=== PATIENT | male | born 1975 | race Caucasian/White ===

== ENCOUNTER 2017-08-25 19:47 | Emergency (ER) | payer BC ==
[2017-08-25] MEDS ORDERED: Ibuprofen 800 MG TAB ONE (20:28)
[2017-08-25] MEDS ORDERED: Acetaminophen 500 MG TAB ONE (22:30)
[2017-08-25 22:41] LABS: Hematocrit 46.2 % (42.0-52.0); Red Blood Cell (RBC) Count 4.78 mill/uL (4.70-6.10); White Blood Cell (WBC) Count 5.8 thou/uL (4.8-10.8)
[2017-08-25] MEDS ORDERED: cefTRIAXone\\ROCEPHIN 2 GM in Sodium Chloride 0.9% 100 ML IVPB SCH (22:45)
[2017-08-25 22:59] LABS: ALT (SGPT) 150 U/L (8-55); AST (SGOT) 150 U/L (5-34); Alkaline Phosphatase 106 U/L (40-150); Anion Gap 16 mmol/L (10-20); BUN (Urea Nitrogen) 10 mg/dL (8.9-20.6); Bilirubin, Total 0.5 mg/dL (0.2-1.2); Calc. Creatinine Clearance 0 mL/min (70-130); Calcium 9.1 mg/dL (7.8-10.44); Carbon Dioxide 19 mmol/L (22-29); Chloride 107 mmol/L (98-107); Estimated GFR-MDRD 75; Globulin 3.2 g/dL (2.4-3.5); Protein, Total 7.2 g/dL (6.0-8.3)
[2017-08-25 23:00] LABS: #Lymphocytes 0.3 thou/uL (1.20-3.40); #Monocytes 0.3 thou/uL (0.11-0.59); #Neutrophils 5.1 thou/uL (1.40-6.50); %Basophils 0.6 % (0.0-1.0); %Eosinophils 0.3 % (0.0-10.0); %Lymphocytes 5.6 % (21.0-51.0); %Monocytes 4.8 % (0.0-10.0); Mean Platelet Volume 9.4 fL (7.4-10.4)
[2017-08-25 23:04] LABS: Troponin I 0.025 ng/mL (< 0.028)
--- NOTE | 2017-08-25 23:06 | RAD ---
CHEST PA AND LATERAL: 08/25/17 HISTORY: 41-year-old male with history of fever, cough, bodyaches since yesterday. Left ICD. Minimal linear parenchymal changes horizontally in the lung bases have a more of a chronic appearance. No confluent pneumonia, overt edema or pleural effusion. IMPRESSION: Horizontal linear parenchymal changes in the lung bases having more of a chronic appearance. Left ICD . No evidence for a confluent pneumonia or other acute process. POS: [facility]
[2017-08-25 23:11] LABS: Anion Gap 13 mmol/L (-14-95); Lactate 1.63 mmol/L (0.50-2.20); POC Est. GFR-MDRD-African-Amer Greater than 60; POC Estimated GFR-MDRD Greater than 60; T. Carbon Dioxide 20.1 mmol/L (1.0-85.0); pH (Venous) 7.467 (7.35-7.45); vO2 Saturation-calc 98.8 % (0.0-100.0)
[2017-08-25] MEDS ORDERED: Azithromycin 500 MG in Sodium Chloride 0.9% 250 ML 250 ML IVPB SCH (23:45)
== END 2017-08-26 00:52 | disposition home or self-care (01) ==
LOC: ERS 19:47
DX: J11.1 Influenza due to unidentified influenza virus with other respiratory manifestations (principal); I25.2 Old myocardial infarction; I10 Essential (primary) hypertension; F17.210 Nicotine dependence, cigarettes, uncomplicated; Z79.899 Other long term (current) drug therapy; Z79.82 Long term (current) use of aspirin
CPT/HCPCS: 36415; 71020; 80053; 82330; 82553; 82803; 83605; 84484; 85025; 87040; 93005; 94640; 96365; 99406; J0456; J0696; J7050; J7620

== ENCOUNTER 2017-12-09 01:23 | Observation (INO) | payer BC ==
[2017-12-09 01:58] LABS: #Eosinphils 0.2 thou/uL (0.0-0.7); #Lymphocytes 1.4 thou/uL (1.20-3.40); #Monocytes 0.6 thou/uL (0.11-0.59); #Neutrophils 8.5 thou/uL (1.40-6.50); %Eosinophils 1.4 % (0.0-10.0); %Monocytes 5.3 % (0.0-10.0); %Neutrophils 80.3 % (42.0-75.0); Hemoglobin 13.8 g/dL (14.0-18.0); Mean Corpuscular HGB CONC 33.7 g/dL (32.0-36.0); Mean Corpuscular Hemoglobin 29.6 pg (27.0-31.0); Mean Corpuscular Volume 87.8 fl (80.0-94.0); Mean Platelet Volume 8.4 fL (7.4-10.4); Platelet Count 143 thou/uL (130-400); RBC Distribution Width 14.7 % (11.5-14.5); Red Blood Cell (RBC) Count 4.66 mill/uL (4.70-6.10); White Blood Cell (WBC) Count 10.6 thou/uL (4.8-10.8)
[2017-12-09] MEDS ORDERED: Morphine 4 MG/ML VIAL ONE (02:03)
[2017-12-09 02:04] LABS: INR-International Normal Ratio 1.3; PTT 32.7 SEC (22.9-36.1); Prothrombin Time 16.2 SEC (12.0-14.7)
[2017-12-09 02:20] LABS: ALT (SGPT) 40 U/L (8-55); AST (SGOT) 23 U/L (5-34); Albumin 3.9 g/dL (3.5-5.0); Alkaline Phosphatase 94 U/L (40-150); Anion Gap 13 mmol/L (10-20); BUN (Urea Nitrogen) 11 mg/dL (8.9-20.6); Bilirubin, Total 1.8 mg/dL (0.2-1.2); Calc. Creatinine Clearance 0 mL/min (70-130); Calcium 9.6 mg/dL (7.8-10.44); Carbon Dioxide 21 mmol/L (22-29); Chloride 107 mmol/L (98-107); Estimated GFR-MDRD 81; Globulin 3.1 g/dL (2.4-3.5); Glucose 173 mg/dL (70-105); Magnesium 1.8 mg/dL (1.6-2.6); Potassium 4.4 mmol/L (3.5-5.1); Sodium 137 mmol/L (136-145)
[2017-12-09 02:23] LABS: CKMB 0.8 ng/mL (0-6.6); Troponin I 0.012 ng/mL (< 0.028)
[2017-12-09] MEDS ORDERED: Acetaminophen 325 MG TAB PO PRN (04:27)
[2017-12-09] MEDS ORDERED: Ondansetron HCl/PF 4 MG/2 ML Vial IVP PRN (04:27)
[2017-12-09] MEDS ORDERED: Ondansetron ODT 4 MG TAB SL PRN (04:27)
[2017-12-09 05:00] VITALS: BMI 30.5
[2017-12-09 05:55] LABS: Troponin I Less than 0.010 ng/mL (< 0.028)
[2017-12-09 08:11] LABS: Troponin I 0.015 ng/mL (< 0.028)
--- NOTE | 2017-12-09 08:39 | RAD ---
CHEST 1 VIEW: Date: 12/09/17 HISTORY: Chest pain. COMPARISON: 08/25/17. FINDINGS: Cardiac silhouette is magnified and upper limits of normal in size. Pulmonary vasculature is slightly engorged. Patchy areas of parenchymal infiltrate are most pronounced in the right upper lobe, left l ower lobe superior segment, and the left lateral lung base. There is blunting of the left lateral cos tophrenic angle. No evidence of pneumothorax. Single lead left subclavian cardiac defibrillator is in place. IMPRESSION: Bilateral patchy infiltrates and left pleural fluid. Possibly related to pulmonary vascular congestio n. Clinical correlation regarding other signs and symptoms of multifocal pneumonitis is required. Con tinued radiographic follow-up is suggested. POS: [facility]
[2017-12-09] MEDS ORDERED: traMADol HCl 50 MG TAB PO PRN (08:53)
[2017-12-09] MEDS ORDERED: Bisacodyl 5 MG TAB PO PRN (08:54)
[2017-12-09] MEDS ORDERED: Apixaban 5 MG TAB PO SCH (09:00)
[2017-12-09] MEDS ORDERED: Amiodarone 200 MG TAB PO SCH (09:00)
[2017-12-09] MEDS ORDERED: Aspirin 81 mg Enteric Coated Tablet PO SCH (09:00)
[2017-12-09] MEDS ORDERED: Carvedilol 3.125 MG TAB PO SCH (09:00)
[2017-12-09] MEDS: Penicillin V Potassium 250 MG TAB PO SCH ×2 (09:52→14:31)
[2017-12-09 12:23] VITALS: BP 133/81; TEMP 98.2
--- NOTE | 2017-12-09 18:19 | SS ---
DATE OF SERVICE: 12/09/2017 PRIMARY CARE PROVIDER: [facility]. CHIEF COMPLAINT: Vomiting, AICD shock. HISTORY OF PRESENT ILLNESS: Mr. Daniel is a pleasant 42-year-old gentleman who was seen at [facility] on 12/09/2017. He has a history of coronary artery disease. He also has an AICD, which was placed in 2012. He was hospitalized at [facility] from 08/[facility]/2017 to 10/18/2017 for swine flu, sepsis and double pneumonia. He reports losing 40 pounds of weight during that hospitalization. More recently, he started having pain over one of his lower teeth on the left side. He usually follo ws a dentist, but the dentist was not available. He therefore [facility] and was sta rted on oral penicillin for tooth abscess. He took the first dose 2 days ago at 4:00 p.m. Yesterday , he started having lightheadedness in the morning. It was on and off. He also reports chills, but denies any fevers. He reports having nausea and vomiting. He had the symptoms yesterday. Shortly a fter midnight, EMS was called. When they went to assess him, his AICD fired. He was therefore broug ht to the emergency room. REVIEW OF SYSTEMS: The following complete review of systems was negative, unless otherwise mentioned in the HPI or below: Constitutional: Weight loss or gain, ability to conduct usual activities. Sk in: Rash, itching. Eyes: Double vision, pain. ENT/Mouth: Nose bleeding, neck stiffness, pain, te nderness. Cardiovascular: Palpitations, dyspnea on exertion, orthopnea. Respiratory: Shortness of breath, wheezing, cough, hemoptysis, fever or night sweats. Gastrointestinal: Poor appetite, abdom inal pain, heartburn, nausea, vomiting, constipation, or diarrhea. Genitourinary: Urgency, frequenc y, dysuria, nocturia. Musculoskeletal: Pain, swelling. Neurologic/Psychiatric: Anxiety, depressio n. Allergy/Immunologic: Skin rash, bleeding tendency. PAST MEDICAL HISTORY: Significant for coronary artery disease, myocardial infarction, status post PC I with stents, AICD, followed by Dr. Gonsales in [place] for Cardiology and recent hospitalization as robby cutler above. PAST SURGICAL HISTORY: Significant for right hand surgery, right foot surgery, PCI with stent and AI CD placement. SOCIAL HISTORY: He smokes cigars occasionally. He reports occasional alcohol use. He denies any re creational drug use. FAMILY HISTORY: Significant for cerebrovascular accident and myocardial infarction in his mother. ALLERGIES: DEMEROL. CURRENT MEDICATIONS: Aspirin 81 mg daily, Pacerone 100 mg 2 times a day, pravastatin 20 mg daily, El iquis 5 mg 2 times a day, and carvedilol 6.25 mg 2 times a day. PHYSICAL EXAMINATION: GENERAL: Mr. Daniel was awake and alert, not in acute distress. He was afebrile. Blood pressure was 121/78, pulse was 78. He was breathing at rate of 18, and saturating 97% on 2 liters. EYES: No scleral icterus. No conjunctival pallor. ENT: Moist mucosal membranes, no oropharyngeal erythema or exudates. NECK: Supple, nontender, normal range of movement. Trachea is midline. RESPIRATORY: Accessory muscles of breathing are not active. Chest wall movements are symmetric. LUNGS: Clear to auscultation, without wheeze, rhonchi or crepitations. CARDIOVASCULAR: S1 and S2 are heard: Regular. Peripheral pulses palpable. No carotid bruit, no pe ricardial rub. ABDOMEN: Soft, nontender, bowel sounds are heard, no hepatomegaly. No splenomegaly. NEUROLOGIC: Cranial nerves II-XII intact. Deep tendon reflexes are 2+. SKIN: No rashes or subcutaneous nodules. MUSCULOSKELETAL: Power is 5/5 in all 4 extremities. Normal range of movement at all major extremity joints. LYMPHATIC: No cervical lymphadenopathy. PSYCHIATRIC: Normal mood, normal affect, patient is oriented to person, place, and time. LABORATORY DATA: Mr. Daniel's labs and investigations were reviewed. I reviewed his electrocardi ogram, which shows normal sinus rhythm with nonspecific intraventricular block. I also reviewed his chest x-ray, which shows pulmonary vascular congestion. He has a normal white count, normocytic anem ia with hemoglobin 13.8, normal platelet count. INR 1.3, elevated total bilirubin of 1.8, elevated B RETIREMENT CONSULTANT of 755, elevated TSH of 5.9956, troponin I that is negative x2, normal AST, normal ALT and normal alkaline phosphatase. ASSESSMENT AND PLAN: Mr. Daniel is a pleasant 42-year-old gentleman who was seen at [facility] on 12/09/2017. His problem list included, 1. Nausea: He reports that nausea had improved, last episode of vomiting was around midnight. He r eports feeling better. 2. AICD firing: Cardiology Service has been consulted by the emergency room physician. I will have his AICD interrogated. Further management depending on Cardiology Service recommendations. 3. Congestive heart failure, suspected. Clinically, there is no jugular venous distention, pulmonar y crackles or lower extremity edema. We will trial furosemide if he feels short of breath. At this point in time, patient denies having any shortness of breath. 4. Tobacco abuse: Patient has been counseled regarding tobacco cessation. HOSPITAL COURSE: Mr. Daniel was admitted to the hospital on observation status. He did not have any arrhythmias on telemetry. On the afternoon of 12/09/2017, he wanted to follow up with his primar y denture laboratory technician. He left the hospital against medical advice on 12/09/2017. Many thanks for allowing me to participate in your patient's care. Please feel free to contact me wi th any questions or concerns.
--- NOTE | 2017-12-09 20:57 | CON ---
This is Lindsay Mccullough, Nurse Practitioner, dictating for Dr. Bai, who is a steamship agent. CARDIOLOGY CONSULTATION REPORT DATE OF CONSULTATION: 12/09/2017 LOCATION: Room #248. PRIMARY CARE PHYSICIAN: Cheryl Zarate M.D. PRIMARY PANTRY STEWARD/STEWARDESS: Dr. Gonsales in [place], [place], but here, the patient's primary steamship agent in [facility] is going to be Dr. Belinda Bai. REFERRING PHYSICIAN: Evan Mckee DO REASON FOR CARDIOLOGY CONSULT: Chest pain. HISTORY OF PRESENT ILLNESS: Mr. Daniel is a 42-year-old male with a significant history of ischemic cardiomyopathy with status post implantable defibrillator placement in 2012 and history of AFib with ablation and then 50 days of hospitalization, current hospitalization for pneumonia and H1N1. Last Sunday, 12/07, the patient started having tooth pain and the patient was prescribed pain medicine and antibiotics. He started taking the medicine at night on 12/07 and the next day on , he started feeling dizziness and he did not feel quite good whole day on Sunday. On Sun morning, he vomited twice and he feels sweat and he had severe shortness of breath. When EMS arr ived, his defibrillator discharged one time without any alarms and the patient was transferred to the [facility] for further evaluation and treatment. At the initial Cardiology ass essment, the patient denies shortness of breath, chest pain or discomfort, numbness in the left upper arm, extremities, dizziness, lightheadedness, or any other complaints. He has generalized weakness due to 50 days of current hospitalization in 10/2017 for pneumonia and H1N1. He did exercise with [facility] physical therapist without any cardiac complaints. The patient's last echocardiogram was done in 05/[address] De Dios's office, which shows EF of 15% to 20%, mild dilated left atrium, moderate mitral valve regurgitation, mild tricuspid regurgitation, moderate pulmonary regurgitation, dyskinetic apex and moderate dilated left ventricle. The patient has coronary artery disease with history of stent placement x1 in the LAD in 05/2012. A single chamb er [employer] implantable defibrillator was placed in 07/2013 and revision was done in 08/2013 due to m icro lead perforation, and per the patient, the patient's AICD interrogation was done in 10/2017 by Maxine Gonsales in the [place], [place]. Dr. Gonsales changed the patient's heart rate setting from 40 to 60 due to forced discharge from his AICD. The patient's AICD was interrogated and the record shows that the patient got shocked x1 for atrial f ibrillation with RVR with heart rates up to more than 200 last night prior to this admission. The cheko martinez has a history of atrial fibrillation with ablation before. The patient has seen Dr. Fu in the past and now the patient's cardiac management was transferred to Dr. Gonsales in the [facility] as. [facility] pacemaker, nurse reported that they are going to transfer the patient's home monitor fr om Dr. Fu's office to Dr. Gonsales's office for closer defibrillator management. PAST MEDICAL HISTORY: 1. Ischemic cardiomyopathy with EF of 15% in 2013, history of atrial fibrillation with status post A Fib ablation at the [facility] in the [place], [place], but he cannot remember the time and date. 2. Hyperlipidemia. 3. Coronary artery disease, status post stents placement in 2011. 4. Hyperlipidemia. 5. Tobacco abuse. PAST SURGICAL HISTORY: 1. Status post [employer] single chamber implantable defibrillator placement in 2012 with a micro lead revision. 2. Right hand surgery. 3. Atrial fibrillation ablation. 4. A foreign object was removed from his lungs. FAMILY HISTORY: The patient's mother has a medical history of myocardial infarction and CVA at the a ge of 30-60. She also has a history of hyperlipidemia. The maternal grandmother on the maternal yessy e has a history of myocardial infarction and Alzheimer's disease. The patient's paternal side has hi story of diabetes and EtOH abuse. SOCIAL HISTORY: He is and he has 3 children who lives well. 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 He has alcohol once a month about 3 times a month. He denied any illicit drug abuse . ALLERGIES: He is allergic to DEMEROL and PREDNISONE. HOME MEDICATIONS: Aspirin 81 mg once a day, carvedilol 6.25 twice a day, Eliquis 5 mg p.o. twice a d ay, amiodarone 100 mg twice a day, tramadol 50 mg every 6 hours as needed, Penicillin V potassium 500 mg three times a day. REVIEW OF SYSTEMS: The following complete review of systems was negative, unless otherwise mentioned in the HPI or below. Constitutional: Weight loss or gain, sense of well-being, ability to conduct usual activities, exercise tolerance. Skin: Rash, itching, breast lumps, tenderness, swelling or ni pple discharge. Eyes: Vision change, double vision, tearing, blind spots, pain. HEENT: Headache, vertigo, lightheadedness, nose bleeding, colds, obstruction, discharge, dental difficulty, gingival b leeding, denture, neck stiffness, pain, tenderness, mass in the thyroid or the other areas. Cardiova scular: Pericardial pain, substernal distress, palpitations, syncope, dyspnea on exertion, orthopnea , nocturnal dyspnea, edema, cyanosis, heart murmur and claudication. Respiratory: Pain, shortness o f breath prior to this episode, wheezing, stridor, cough, hemoptysis. Gastrointestinal: Poor appeti te, dysphagia, indigestion, abdominal pain, heartburn, eructation, nausea, vomiting, jaundice, consti pation, or diarrhea, abnormal or blood in stool. Genitourinary: Urgency, frequency, dysuria, noctur ia, hematuria, polyuria, oliguria, unusual color of urine. Musculoskeletal: Pain, swelling, redness or heat of muscle or joint, limitation of motion, positive for muscle weakness due to long period ti me of the hospitalization. Neurologic: Seizure, conversion, paralysis, tremor, incoordination. Psy chiatric: Emotional problem, anxiety, depression, previous psychiatric care, unusual perception, max lucination. PHYSICAL EXAMINATION: VITAL SIGNS: Blood pressure 121/78, pulse is 78 with sinus rhythm, temperature 98.3, respiratory rat e 18. The patient is on 2 liters nasal cannula. GENERAL: A well-developed, well-nourished without any acute distress. HEAD: Normocephalic and atraumatic. EYES: Extraocular muscle movement intact. ENT: Oral and nasal mucosa moist without lesion. NECK: No JVD. Neck is supple with normal range of motion. LUNGS: Clear to auscultation bilaterally. No wheezing, rales or rhonchi noted. CARDIOVASCULAR: Regular rate and rhythm. Normal S1 and S2. There are no S3 or S4. No significant murmur, hives, thrill or bruits noted. There are 2+ pulses in the dorsal pedis, posterior tibial, an d popliteal. Carotid pulse present without bruits or thrill. No edema in the bilateral lower extrem ities. ABDOMEN: Soft and nontender or mass to palpate, nondistended. Bowel sounds are present. MUSCULOSKELETAL: The patient able to move all extremities. The patient denied any calf tenderness. SKIN: Warm and dry. No skin rash, lesion or bruise noted. NEUROLOGIC: Alert, oriented x4, awake, normal affect, nonfocal. PSYCHIATRIC: Mood and affect are normal. LABORATORY AND IMAGING DATA: EKG: A 12-lead EKG in the ER shows sinus tachycardia and V-paced, hear t rate of 104, T-wave inversion in lead I, lead II, AVF and V6. The patient's chest x-ray shows bila teral patchy infiltrate and left pleural fluid. WBC 10.6, hemoglobin 13.8, hematocrit 40.9 and platelet 143. Sodium 137, potassium 4.4, BUN 11, crea tinine 1.0, glucose 173, magnesium 1.8, AST 23, ALT 40, CK-MB 0.8. Troponin 0.012, less than 0.010 a nd next one 0.015. BNP is 1755 and TSH is 5.9956. ASSESSMENT AND PLAN: Status post automatic implantable cardioverter-defibrillator discharge. Again, the patient's automatic implantable cardioverter-defibrillator interrogation today shows: 1. The patient received one shock discharge last night for atrial fibrillation with rapid ventricula r response with heart rate more than 200. We would like to continue to monitor the patient on the te lemetry at this moment. Then, also the patient's home monitor record is going to be transferred to Maxine evans Attar's office in the [place] for more closer defibrillator management and to monitor. 2. History of atrial fibrillation. Again, the patient's automatic implantable cardioverter-defibril lator interrogation records revealed that the patient had atrial fibrillation with rapid ventricular response with heart rate more than 200. At this moment, on the telemetry record, the patient's heart rates have been in the 80s with ventricular paced. The patient is on Eliquis 5 mg twice a day with amiodarone 100 twice a day. We would like to continue to monitor on telemetry and we might like to a djust the patient's medication as appropriate. 3. Hyperlipidemia. He is on simvastatin 10 mg once a day, we would like to continue. 4. Hypothyroidism. The patient's TSH on 12/09 shows 5.9956. The patient might need some thyroid me dication to correct this level. 5. Tooth infection, tooth pain. The patient on the Penicillin V potassium 500 mg 3 times a day with tramadol as needed for pain control. The patient's condition is stable at this moment. 6. Tobacco abuse. He smokes about 3 times a month, but due to atrial fibrillation with rapid ventri cular response, we strongly recommend him to start smoking cessation. Thank you very much for allowing Cardiology Service to participate in the care with this patient. We will follow along with the patient care team and make further recommendation as appropriate.
[2017-12-09] MEDS ORDERED: Simvastatin 5 MG TAB PO SCH (21:00)
== END 2017-12-09 15:08 | disposition left against medical advice (07) ==
LOC: ERS 01:23 → 2SW 03:52
PROVIDERS: ADMIT Internal Medicine; ATTEND Internal Medicine
DX: I48.91 Unspecified atrial fibrillation (principal); R11.2 Nausea with vomiting, unspecified; I25.10 Atherosclerotic heart disease of native coronary artery without angina pectoris; K04.7 Periapical abscess without sinus; I25.2 Old myocardial infarction; F17.290 Nicotine dependence, other tobacco product, uncomplicated; I25.5 Ischemic cardiomyopathy; E78.5 Hyperlipidemia, unspecified; E03.9 Hypothyroidism, unspecified; Z79.82 Long term (current) use of aspirin; Z79.01 Long term (current) use of anticoagulants; Z79.2 Long term (current) use of antibiotics; Z79.899 Other long term (current) drug therapy; Z88.5 Allergy status to narcotic agent; Z88.8 Allergy status to other drugs, medicaments and biological substances; Z95.810 Presence of automatic (implantable) cardiac defibrillator; Z95.5 Presence of coronary angioplasty implant and graft
CPT/HCPCS: 36415; 71045; 80053; 82553; 83735; 83880; 84443; 84484; 85025; 85610; 85730; 93005; 94760; 96361; 96374; A4216; G0378; J2270

== ENCOUNTER 2017-12-22 21:53 | Emergency (ER) | payer BC ==
[2017-12-22 22:21] LABS: #Eosinphils 0.3 thou/uL (0.0-0.7); #Lymphocytes 2.4 thou/uL (1.20-3.40); #Monocytes 0.8 thou/uL (0.11-0.59); #Neutrophils 5.6 thou/uL (1.40-6.50); %Basophils 0.2 % (0.0-1.0); %Eosinophils 3.1 % (0.0-10.0); %Lymphocytes 26.3 % (21.0-51.0); %Monocytes 8.5 % (0.0-10.0); %Neutrophils 61.9 % (42.0-75.0); Mean Corpuscular HGB CONC 33.8 g/dL (32.0-36.0); Mean Corpuscular Hemoglobin 29.1 pg (27.0-31.0); Mean Corpuscular Volume 86.1 fl (80.0-94.0); Platelet Count 292 thou/uL (130-400); RBC Distribution Width 14.2 % (11.5-14.5); Red Blood Cell (RBC) Count 4.83 mill/uL (4.70-6.10)
[2017-12-22 22:46] LABS: ALT (SGPT) 50 U/L (8-55); AST (SGOT) 35 U/L (5-34); Albumin 4.2 g/dL (3.5-5.0); Alkaline Phosphatase 115 U/L (40-150); Anion Gap 16 mmol/L (10-20); BUN (Urea Nitrogen) 14 mg/dL (8.9-20.6); Bilirubin, Total 0.2 mg/dL (0.2-1.2); CK (CPK) 58 U/L (30-200); Calc. Creatinine Clearance 0 mL/min (70-130); Calcium 9.8 mg/dL (7.8-10.44); Carbon Dioxide 20 mmol/L (22-29); Chloride 106 mmol/L (98-107); Estimated GFR-MDRD 59; Globulin 3.6 g/dL (2.4-3.5); Glucose 122 mg/dL (70-105); Potassium 3.9 mmol/L (3.5-5.1); Protein, Total 7.8 g/dL (6.0-8.3); Sodium 138 mmol/L (136-145)
[2017-12-22 22:51] LABS: CKMB 0.7 ng/mL (0-6.6); Troponin I Less than 0.010 ng/mL (< 0.028)
[2017-12-23] MEDS ORDERED: Esmolol 100 MG/10 ML VIAL IVP SCH (00:30)
[2017-12-23] MEDS ORDERED: Esmolol 2,500 MG/250 ML 250 ML IVPB SCH (00:30)
--- NOTE | 2017-12-23 09:02 | RAD ---
PORTABLE AP CHEST: Date: 12/22/17 HISTORY: Chest pain. COMPARISON: 12/09/17. FINDINGS: Single lead left subclavian AICD device noted in place. Cardiac silhouette is magnified by portable t echnique and patient rotation. Linear densities are present at the left lung base, likely related to scarring and/or atelectasis. Lungs are otherwise clear. No other interval change. IMPRESSION: Linear scarring and/or atelectasis at the left lung base. There is otherwise no acute cardiopulmonary process. POS: [facility]
== END 2017-12-23 02:28 | disposition short-term general hospital (02) ==
LOC: ERS 21:53
DX: I48.91 Unspecified atrial fibrillation (principal); I25.2 Old myocardial infarction; I10 Essential (primary) hypertension; F17.210 Nicotine dependence, cigarettes, uncomplicated; Z79.82 Long term (current) use of aspirin; Z79.01 Long term (current) use of anticoagulants; Z79.899 Other long term (current) drug therapy
CPT/HCPCS: 36415; 71045; 80053; 82550; 82553; 83880; 84484; 85025; 93005; 96365; 96376

== ENCOUNTER 2018-01-04 21:33 | Inpatient (IN) | payer BC ==
[~2018-01-04 21:33] MED LIST: ISOVUE-370 76%-LOCM 1 ML ONE
[2018-01-04] MEDS ORDERED: Ondansetron ODT 4 MG TAB ONE (21:55)
[2018-01-04] MEDS ORDERED: Morphine 4 MG/ML VIAL ONE (21:55)
[2018-01-04 21:57] LABS: #Eosinphils 0.1 thou/uL (0.0-0.7); #Lymphocytes 2.5 thou/uL (1.20-3.40); #Monocytes 0.8 thou/uL (0.11-0.59); #Neutrophils 8.5 thou/uL (1.40-6.50); %Basophils 0.1 % (0.0-1.0); %Eosinophils 0.5 % (0.0-10.0); %Lymphocytes 21.2 % (21.0-51.0); %Monocytes 6.3 % (0.0-10.0); %Neutrophils 71.8 % (42.0-75.0); Hemoglobin 15.3 g/dL (14.0-18.0); Mean Corpuscular HGB CONC 34.2 g/dL (32.0-36.0); Mean Corpuscular Hemoglobin 29.6 pg (27.0-31.0); Mean Corpuscular Volume 86.7 fl (80.0-94.0); Mean Platelet Volume 8.7 fL (7.4-10.4); Platelet Count 157 thou/uL (130-400); RBC Distribution Width 14.8 % (11.5-14.5); Red Blood Cell (RBC) Count 5.16 mill/uL (4.70-6.10); White Blood Cell (WBC) Count 11.8 thou/uL (4.8-10.8)
--- NOTE | 2018-01-04 22:00 | RAD ---
UPRIGHT PORTABLE CHEST ONE VIEW: 01/04/18 HISTORY: 42-year-old male with history of chest pain with palpitations, chills, and dizziness. COMPARISON: 12/22/17. Left ICD. There is some patchy interstitial and alveolar parenchymal changes in the perihilar regions bilaterally certainly concerning for bilateral pulmonary edema. Heart size is within normal limits. No significant pleural effusion. IMPRESSION: Patchy fairly symmetric bilateral alveolar and interstitial opacities primarily in the perihilar dist ribution evidence for bilateral pulmonary edema. Symmetric atypical pneumonia or pneumonitis could co nceivably have a similar radiographic appearance. POS: [facility]
[2018-01-04 22:25] LABS: Troponin I 0.017 ng/mL (< 0.028)
[2018-01-04 22:27] LABS: Bilirubin Negative (Negative); Blood, Urine Negative (Negative); Clarity CLEAR (Clear); Glucose, Urine (Dipstick) Negative (Negative); Leukocyte Negative (Negative); Nitrite Negative (Negative); Protein, Urine (Dipstick) Negative (Neg-Trace); Specific Gravity, Urine 1.006 (1.002-1.036); Urobilinogen 0.2 mg/dL (0.2-1.0)
[2018-01-04] MEDS ORDERED: Diltiazem HCl 125 MG, Admixture Fee 1 EACH in Sodium Chloride 0.9% 100 ML IVPB SCH (23:00)
[2018-01-04 23:14] LABS: Albumin 4.2 g/dL (3.5-5.0)
[2018-01-04 23:15] LABS: Calcium 9.7 mg/dL (7.8-10.44); Chloride 106 mmol/L (98-107); Magnesium 2.3 mg/dL (1.6-2.6); Potassium 4.1 mmol/L (3.5-5.1); Sodium 141 mmol/L (136-145)
[2018-01-04 23:16] LABS: Globulin 3.1 g/dL (2.4-3.5); Glucose 120 mg/dL (70-105); Protein, Total 7.3 g/dL (6.0-8.3)
[2018-01-04 23:18] LABS: Anion Gap 15 mmol/L (10-20); Bilirubin, Total 0.7 mg/dL (0.2-1.2); Carbon Dioxide 24 mmol/L (22-29)
[2018-01-04 23:19] LABS: Alkaline Phosphatase 87 U/L (40-150)
[2018-01-04 23:20] LABS: BUN (Urea Nitrogen) 12 mg/dL (8.9-20.6); Calc. Creatinine Clearance 0 mL/min (70-130); Estimated GFR-MDRD 57
[2018-01-04 23:21] LABS: AST (SGOT) 32 U/L (5-34)
[2018-01-04 23:22] LABS: ALT (SGPT) 55 U/L (8-55); CK (CPK) 76 U/L (30-200); Lipase 19 U/L (8-78)
--- NOTE | 2018-01-04 23:45 | CT ---
CT ANGIOGRAM CHEST INCLUDING 3D RENDERIN01/04/18 HISTORY: 42-year-old male with history of chest pain. There are widespread diffuse alveolar and interstitial parenchymal changes in both lungs, particularl y in the perihilar type distribution with possibilities including that of bilateral pulmonary edema o r bilateral atypical pneumonia or pneumonitis. There is old granulomatous disease. There is some pleu ral based parenchymal changes probably representing some subsegmental atelectasis. There is an oblong pleural based nodule in the left lower lobe measuring 1.4 x [address] evidence for significant a cute PE. No pericardial effusion. Visualized upper abdomen is unremarkable. IMPRESSION: 1. Widespread bilateral alveolar and interstitial parenchymal changes throughout both lungs evid ence for bilateral edema or symmetric bilateral atypical pneumonia or pneumonitis. Old granulomatous disease. Bibasilar parenchymal changes having more the appearance of subsegmental atelectasis. 1.4 x 3.4 cm diameter pleural based nodule in the left lower lobe. 2. No significant CT evidence for acute pulmonary embolism. Code LN POS: [facility]
[2018-01-05] MEDS ORDERED: Ondansetron HCl/PF 4 MG/2 ML Vial IVP PRN (01:28)
[2018-01-05] MEDS ORDERED: Acetaminophen 325 MG TAB PO PRN (01:28)
[2018-01-05] MEDS ORDERED: Milk Of Magnesia 30 ML UDCUP PO PRN (01:28)
[2018-01-05] MEDS ORDERED: Albuterol Sulfate 2.5 mg/3 ml Neb NEB PRN (01:29)
--- NOTE | 2018-01-05 02:00 | HP ---
PRIMARY CARE PHYSICIAN: [facility]. PRESENTING COMPLAINT: Chest pressure. HISTORY OF PRESENT ILLNESS: Mr. Fredy Forbes is a 42-year-old male with a past medical history of PR status post AICD placement, CAD status post stent and atrial fibrillation, who presents to the emergency room with complaints of chest pressure. He reports that he felt like he was in atrial fibrillation this morning due to his symptoms - he felt "funny" his heart was racing, he was dizzy, and he checked his heart rate and it was in the 160s. He also had some chest tightness and shortness of breath. He denies PND, orthopnea or lower extremity edema. He denies fever, chills, cough or sputum production. He has no abdominal or urinary symptoms. He called his practicing md anesthesiologist and told him to call EMS. His vital signs were relatively stable. An EKG done showed a new onset left bundle branch block. At the emergency room, labs revealed slight leukocytosis at 11.8, otherwise normal BNP. Serum chemistry showed elevated creatinine of 1.36. BNP was 344. Initial troponin was 0.017. CTA chest showed widespread bilateral alveolar and interstitial parenchymal changes throughout both lungs with evidence for bilateral edema or symmetrical bilateral atypical pneumonia or pneumonitis. The patient was actually admitted at [facility] from 08/28/2017-10/18/2017 for swine flu sepsis and double pneumonia. He was started on IV diltiazem, given the dose of morphine sulfate, ondansetron and vancomycin for possible atypical pneumonia. PAST MEDICAL HISTORY: CAD, myocardial infarction status post PCI with stent, AICD, atrial fibrillation. PAST SURGICAL HISTORY: Hand surgery and also had ablation. FAMILY HISTORY: His mother had myocardial infarction in her 30s and CVA as well. SOCIAL HISTORY: Does not drink alcohol, smoke cigarettes or use illicit drugs. ALLERGIES: None. HOME MEDICATIONS: Amiodarone 100 mg b.i.d., Eliquis 5 mg b.i.d., aspirin 81 mg daily, carvedilol 6.25 mg b.i.d., Penicillin V 500 mg t.i.d., Pravastatin 20 mg daily, tramadol 50 mg q.6 hours p.r.n. for pain. REVIEW OF SYSTEMS: Constitutional: Positive for chills. Denies fever or weakness. HEENT: Negative. Cardiovascular: Per HPI. Respiratory: Denies shortness of breath, cough. GI: Negative. : Negative. Musculoskeletal: Negative. Skin: Negative. Neurologic: Positive for dizziness, otherwise negative. Endocrine/allergy: Negative. Lymphatic: Negative. Allergy/immunologic: Negative. Psychiatric: Negative. PHYSICAL EXAMINATION: VITAL SIGNS: At presentation, blood pressure 131/91, pulse rate 86, respiratory rate 20, oxygen saturation 93% on 2 liters of oxygen. GENERAL: Not in acute distress, lying comfortable in bed. HEENT: Normocephalic, atraumatic. Not pale, anicteric. PERRLA, EOMI. Moist mucous membranes. NECK: Supple with full range of movement. No JVD. RESPIRATORY: Reduced breath sounds bilaterally, but otherwise clear lungs. No wheezes or rales. CARDIOVASCULAR: Regular rate and rhythm, S1 and S2 only. No murmurs, rubs or gallops. ABDOMEN: Soft, nontender, nondistended. No hepatosplenomegaly. Bowel sounds normoactive. MUSCULOSKELETAL: No lower extremity edema. Full range of movement in all extremities. SKIN: Warm, dry, well-perfused. No rashes or lesions. PSYCHIATRIC: Normal mood and affect. NEUROLOGIC: Alert and well oriented. No focal deficits. LABORATORY DATA: As stated in HPI. IMAGING: CTA chest and chest x-ray as stated in HPI. EKG no evidence of acute ischemia, but showed left bundle-branch block. ASSESSMENT AND PLAN: 1. Atrial fibrillation with rapid ventricular response: The patient with a history of atrial fibrillation who presents to the emergency room today with RVR. He has been started on IV diltiazem. He will be admitted to telemetry. Cardiology will be consulted. We will resume his home medications of amiodarone , Eliquis, carvedilol and aspirin once they have been confirmed by pharmacy. 2. Shortness of breath: There is question of atypical pneumonia versus edema. On chart review, it seems the patient was thought to likely have congestive heart failure on his last admission here where he had a short stay, but left against medical advice before the workup could have been completed. He was started on furosemide then, but did not write furosemide on discharge. It is more likely to be congestive heart failure than symmetric atypical pneumonia. So for now, we will hold off on further antibiotics and get a blood cultures. We will also start him on IV diuresis with furosemide, consult Cardiology, trend troponin and obtain an echocardiogram. He will be placed on a cardiac diet and troponin will be trended as well. 3. History of coronary artery disease, status post stent and AICD: The patient is currently chest pain free. We will continue on his home medications once they have been confirmed. 4. Elevated creatinine, likely from chronic kidney disease. His creatinine today is 1.36, on last admit it was around 1.31. We will monitor renal function closely while on this admission. Code status: FULL CODE. Deep venous thrombosis prophylaxis, on subcutaneous heparin. MTDD
[2018-01-05 03:43] VITALS: BMI 29.3
[2018-01-05] MEDS: Furosemide 20 MG/2 ML VIAL SLOW IVP SCH ×2 (05:28→13:22)
[2018-01-05 05:53] LABS: #Eosinphils 0.2 thou/uL (0.0-0.7); #Lymphocytes 2.5 thou/uL (1.20-3.40); #Monocytes 0.7 thou/uL (0.11-0.59); #Neutrophils 6.6 thou/uL (1.40-6.50); %Basophils 0.2 % (0.0-1.0); %Eosinophils 1.6 % (0.0-10.0); %Lymphocytes 24.8 % (21.0-51.0); %Monocytes 6.9 % (0.0-10.0); %Neutrophils 66.4 % (42.0-75.0); Hemoglobin 13.1 g/dL (14.0-18.0); Mean Corpuscular HGB CONC 32.8 g/dL (32.0-36.0); Mean Corpuscular Hemoglobin 28.8 pg (27.0-31.0); Mean Corpuscular Volume 87.7 fl (80.0-94.0); Mean Platelet Volume 8.5 fL (7.4-10.4); Platelet Count 129 thou/uL (130-400); RBC Distribution Width 14.7 % (11.5-14.5); Red Blood Cell (RBC) Count 4.54 mill/uL (4.70-6.10)
[2018-01-05 06:00] LABS: Anion Gap 13 mmol/L (10-20); BUN (Urea Nitrogen) 12 mg/dL (8.9-20.6); Calc. Creatinine Clearance 119 mL/min (70-130); Calcium 8.9 mg/dL (7.8-10.44); Carbon Dioxide 23 mmol/L (22-29); Chloride 107 mmol/L (98-107); Estimated GFR-MDRD 73; Glucose 102 mg/dL (70-105); Potassium 3.8 mmol/L (3.5-5.1); Sodium 139 mmol/L (136-145)
[2018-01-05 08:11] LABS: Free T4 (Free Thyroxine) 1.06 ng/dL (0.70-1.48)
[2018-01-05] MEDS ORDERED: Amiodarone 200 MG TAB PO SCH ×5 (09:00→21:00)
[2018-01-05] MEDS ORDERED: Carvedilol 3.125 MG TAB PO SCH (09:00)
[2018-01-05] MEDS: Pravastatin Sodium 20 MG TAB PO SCH (09:20)
[2018-01-05] MEDS: Apixaban 5 MG TAB PO SCH ×2 (09:20→21:22)
[2018-01-05] MEDS: Aspirin 81 mg Enteric Coated Tablet PO SCH (09:21)
[2018-01-05] MEDS: Metoprolol Tartrate 50 MG TAB PO SCH ×3 (09:22→21:23)
[2018-01-05 11:12] LABS: Hemoglobin 13.7 g/dL (14.0-18.0); Platelet Count 127 thou/uL (130-400)
--- NOTE | 2018-01-05 13:02 | PDOC.PN ---
- Subjective Encounter Start Date: 01/05/18 Encounter Start Time: 13:01 Subjective: reports feeling Ok. no new complaint -: nursing reported low BP ,so cardizem drip stopped -: recently got amiodarone increased & Coreg change to metoprolol by dr. Gonsales - Objective Resuscitation Status: Resuscitation Status FULL:Full Resuscitation MAR Reviewed: Yes Vital Signs & Weight: Vital Signs (12 hours) Temp Pulse Resp BP Pulse Ox 01/05/18 10:48 60 16 94/64 95 01/05/18 07:45 97.3 F L 70 16 87/59 L 92 L 01/05/18 07:39 92 L 01/05/18 04:06 98.4 F 89 14 94 L 01/05/18 03:41 98.4 F 89 14 114/75 94 L Weight Weight 216 lb 9.6 oz I&O: 01/04/18 01/05/18 01/06/18 06:59 06:59 06:59 Intake Total 540 Output Total 220 Balance 320 Result Diagrams: 01/05/18 10:38 01/05/18 10:38 Additional Labs: Laboratory Tests 12/09/17 01/04/18 01/05/18 01:50 21:43 05:13 B-Natriuretic Peptide 344.4 H Free T4 Free T3 TSH 3rd Generation 5.9956 H 9.3141 H 01/05/18 05:13 B-Natriuretic Peptide Free T4 1.06 Free T3 2.46 TSH 3rd Generation Radiology Reviewed by me: Yes (CTA-no PE.b/l pneumonia Vs pneumonitis) Phys Exam - Physical Examination Constitutional: NAD HEENT: PERRLA, moist MMs, sclera anicteric, oral pharynx no lesions Neck: no nodes, no JVD, supple, full ROM Respiratory: no wheezing, no rales, no rhonchi, clear to auscultation bilateral Cardiovascular: RRR, no significant murmur, no rub, gallop Gastrointestinal: soft, non-tender, no distention, positive bowel sounds Musculoskeletal: no edema, pulses present Neurological: non-focal, normal sensation, moves all 4 limbs Psychiatric: normal affect, A&O x 3 Skin: no rash Dx/Plan (1) PNA (pneumonia) Code(s): J18.9 - PNEUMONIA, UNSPECIFIED ORGANISM Status: Acute (2) Chronic atrial fibrillation with RVR Code(s): I48.2 - CHRONIC ATRIAL FIBRILLATION Status: Acute (3) Ischemic cardiomyopathy Code(s): I25.5 - ISCHEMIC CARDIOMYOPATHY Status: Chronic (4) AICD (automatic cardioverter/defibrillator) present Code(s): Z95.810 - PRESENCE OF AUTOMATIC (IMPLANTABLE) CARDIAC DEFIBRILLATOR Status: Chronic (5) CAD (coronary artery disease) Code(s): I25.10 - ATHSCL HEART DISEASE OF [place] CORONARY ARTERY W/O ANG PCTRS Status: Chronic (6) Dyslipidemia Code(s): E78.5 - HYPERLIPIDEMIA, UNSPECIFIED Status: Chronic (7) Troponin level elevated Code(s): R74.8 - ABNORMAL LEVELS OF OTHER SERUM ENZYMES Status: Resolved (8) RAY (acute kidney injury) Code(s): N17.9 - ACUTE KIDNEY FAILURE, UNSPECIFIED Status: Resolved - Plan continue antibiotics, PT/OT, respiratory therapy, incentive spirometry, out of bed/ambulate, DVT proph w/SCDs add ABx empirically for PNA.monitor clinically -: Appears Sinus on tele.cont metoprolol.DC Coreg,cardiazem drip. -: increase amiodarone as per home dose. -: cardiology recs requested.cont diuretics IV for now.strict I/Os -: TSH high but T3/4 normal-OP f/u in 6 weeks * .am labs. 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 Review of Systems - Review of Systems Constitutional: negative: fever, chills, sweats, weakness, malaise, other ENT: negative: Ear Pain, Ear Discharge, Nose Pain, Nose Discharge, Nose Congestion, Mouth Pain, Mouth Swelling, Throat Pain, Throat Swelling, Other Respiratory: negative: Cough, Dry, Shortness of Breath, Hemoptysis, SOB with Excertion, Pleuritic Pain, Sputum, Wheezing Cardiovascular: negative: chest pain, palpitations, orthopnea, paroxysmal nocturnal dyspnea, edema, light headedness, other Gastrointestinal: negative: Nausea, Vomiting, Abdominal Pain, Diarrhea, Constipation, Melena, Hematochezia, Other Genitourinary: negative: Dysuria, Frequency, Incontinence, Hematuria, Retention , Other Musculoskeletal: negative: Neck Pain, Shoulder Pain, Arm Pain, Back Pain, Hand Pain, Leg Pain, Foot Pain, Other Skin: negative: Rash, Lesions, Jacques, Bruising, Other Neurological: negative: Weakness, Numbness, Incoordination, Change in Speech, Confusion, Seizures, Other - Medications/Allergies Allergies/Adverse Reactions: Allergies Allergy/AdvReac Type Severity Reaction Status Date / Time meperidine [From Demerol] Allergy Hives Verified 12/09/17 05:03 prednisone Allergy Hives Verified 12/09/17 05:03 Medications: Current Medications Acetaminophen (Tylenol) 650 mg PO Q4H PRN PRN Reason: Headache/Fever or Pain Last Admin: 01/05/18 03:02 Dose: 650 mg Albuterol Sulfate (Ventolin) 2.5 mg NEB [id number] PRN PRN Reason: Wheezing Amiodarone HCl (Cordarone) 400 mg PO BID [facility] Apixaban (Eliquis) 5 mg PO BID [facility] Last Admin: 01/05/18 09:20 Dose: 5 mg Aspirin (Ecotrin) 81 mg PO DAILY [facility] Last Admin: 01/05/18 09:21 Dose: 81 mg Furosemide (Lasix) 20 mg SLOW IVP 0600,1400 [facility] Last Admin: 01/05/18 05:28 Dose: 20 mg Levofloxacin 500 mg/ Device 100 mls @ 100 mls/hr IVPB Q24HR [facility] Last Admin: 01/05/18 09:20 Dose: 100 mls Lactulose (Lactulose) 20 gm PO DAILYPRN PRN PRN Reason: Constipation Magnesium Hydroxide (Milk Of Magnesium) 30 ml PO DAILYPRN PRN PRN Reason: Constipation Metoprolol Tartrate (Lopressor) 50 mg PO BID [facility] Last Admin: 01/05/18 09:22 Dose: Not Given Ondansetron HCl (Zofran) 4 mg IVP Q6H PRN PRN Reason: Nausea/Vomiting Pravastatin Sodium (Pravachol) 20 mg PO DAILY [facility] Last Admin: 01/05/18 09:20 Dose: 20 mg Sodium Chloride (Flush - Normal Saline) 10 ml IVF Q12HR [facility] Last Admin: 01/05/18 09:21 Dose: 10 ml Sodium Chloride (Flush - Normal Saline) 10 ml IVF PRN PRN PRN Reason: Saline Flush
[2018-01-05] MEDS ORDERED: Ketorolac Tromethamine 30 MG/ML VIAL IVP SCH (15:45)
[2018-01-05] MEDS: traMADol HCl 50 MG TAB PO PRN ×2 (15:57→21:26)
--- NOTE | 2018-01-05 18:43 | CON ---
DATE OF CONSULTATION: 01/05/2018 CARDIOLOGY CONSULTATION REASON FOR CONSULTATION: Atrial fibrillation with rapid ventricular response. HISTORY OF PRESENT ILLNESS: Mr. Daniel is a very pleasant 42-year-old white gentleman who comes t o the hospital for feeling lightheaded. He was at home and started feeling lightheaded, checked his pulse and it was 160s. He called his primary director information security who is Dr. Fu at [facility] and he was told to call EMS and he was brought to the emergency room for further evaluation. EKG showed he was in atrial fibrillation with RVR, heart rate in the 160s, so he was admitted and placed on a diltiaze m drip. He currently is back in heart rates in the 70s paced with underlying atrial fibrillation, al though he has little runs of high ventricular rates most likely related to either conducting atrial f ibrillation versus 2:1 flutter. Currently, he feels much better. The diltiazem drip is off and his blood pressure was a little bit on the low side, but it is getting better now. He denies any chest p ain, tightness, pressure, no shortness of breath. PAST MEDICAL HISTORY: 1. Coronary artery disease, status post percutaneous coronary intervention to LAD in 2012. 2. Severe ischemic cardiomyopathy, EF about 15%-20%, last evaluation here several years ago. 3. Presence of defibrillator. 4. History of atrial fibrillation. PAST SURGICAL HISTORY: 1. Atrial fibrillation ablation in the past. 2. Stents placed in 2012. 3. Single chamber AICD in 2012 with lead revision later that year. 4. Right hand surgery. 5. Foreign objects removed from the lungs in the past. 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 Drinks about once to 3 times a month, rarely. No drug use or tobacco use. OUTPATIENT MEDICATIONS: Include: 1. Amiodarone 100 mg b.i.d. 2. Eliquis 5 mg b.i.d. 3. Aspirin 81 a day. 4. Carvedilol 6.25 mg b.i.d. 5. Penicillin. 6. Pravastatin 20 mg b.i.d. 7. Tramadol 50 mg q.6 hours p.r.n. pain. FAMILY HISTORY: Mother had MN in her 30s and CVA. REVIEW OF SYSTEMS: A 12 point review of systems was done and it is all negative unless stated in the history of present illness. PHYSICAL EXAMINATION: VITAL SIGNS: Temperature 97.3, pulse 70, respiratory rate 16, satting 92% on 2 liters, currently 96% on room air, blood pressure 101/69. GENERAL: Awake, alert, oriented x3, in no distress. HEENT: Normocephalic, atraumatic. NECK: Supple. LUNGS: Have coarse breath sounds bilaterally. CARDIOVASCULAR: S1, S2, no S3, S4. ABDOMEN: Soft, otherwise. EXTREMITIES: No edema. SKIN: Warm and dry. LABORATORY DATA: Laboratory work was reviewed. White count of 11.8 on admission down to 10.8, hemog lobin from 15 down to 13.7, normal platelets at 157 on admission down to 127. Coags: D-dimer was a little bit elevated. Chemistry is unremarkable. Troponin has been 0.01, 0.03, 0.02. TSH was 9.3, e levated free T3 and free T4 were normal. BNP was 344. ASSESSMENT AND PLAN: Atrial fibrillation with rapid ventricular response: Currently most likely he has had mode switch and is just pacing ventricularly with a single lead defibrillator. We will alicia nue amiodarone for now. We will switch to a drip. Continue his home dose of beta blockers. We will stop diltiazem drip. We will plan on consulting Electrophysiology as he may be a candidate for an u pgrade for biventricular AICD and just AV junction ablation. Thank you for letting us to participate in the care of your patient. We will follow.
[2018-01-05] MEDS: Amiodarone HCl 450 MG, Admixture Fee 1 EACH in Dextrose 5% in Water 250 ML IVPB SCH (21:43)
[2018-01-06] MEDS ORDERED: Melatonin 3 MG TAB PO SCH ×2 (00:45→21:00)
[2018-01-06] MEDS: Amiodarone HCl 450 MG, Admixture Fee 1 EACH in Dextrose 5% in Water 250 ML IVPB SCH (05:32)
[2018-01-06] MEDS: Furosemide 20 MG/2 ML VIAL SLOW IVP SCH ×2 (05:33→07:08)
[2018-01-06] MEDS: Aspirin 81 mg Enteric Coated Tablet PO SCH (08:40)
[2018-01-06] MEDS: Pravastatin Sodium 20 MG TAB PO SCH (08:40)
[2018-01-06] MEDS: Apixaban 5 MG TAB PO SCH ×2 (08:40→21:48)
[2018-01-06] MEDS: Metoprolol Tartrate 50 MG TAB PO SCH (08:41)
[2018-01-06] MEDS: traMADol HCl 50 MG TAB PO PRN ×2 (08:41→21:50)
[2018-01-06] MEDS ORDERED: Metoprolol Tartrate 50 MG TAB PO SCH ×3 (08:50→13:39)
--- NOTE | 2018-01-06 13:42 | PDOC.PN ---
- Subjective Encounter Start Date: 01/06/18 Encounter Start Time: 13:40 Subjective: feels ok this morning.no chest pain/sob/palpitations - Objective Resuscitation Status: Resuscitation Status FULL:Full Resuscitation MAR Reviewed: Yes Vital Signs & Weight: Vital Signs (12 hours) Temp Pulse Resp BP Pulse Ox 01/06/18 13:36 59 L 18 89/55 L 94 L 01/06/18 12:00 98.7 F 63 18 108/53 L 94 L 01/06/18 08:55 97.9 F 68 20 01/06/18 08:45 97.9 F 68 20 106/59 L 96 01/06/18 04:00 97.6 F 60 16 89/60 L 93 L Weight Weight 217 lb 11.2 oz I&O: 01/05/18 01/06/18 01/07/18 06:59 06:59 06:59 Intake Total 540 1600 Output Total 220 1900 Balance 320 -300 Result Diagrams: 01/05/18 10:38 01/05/18 10:38 Additional Labs: Microbiology 01/05/18 05:13 Venous blood - Left Hand Blood Culture - Preliminary Specimen has been received and culture in progress. No Growth to date. 01/05/18 05:12 Venous blood - Left Arm Blood Culture - Preliminary Specimen has been received and culture in progress. No Growth to date. Radiology Reviewed by me: Yes (ECHO-EF 10-15%) EKG Reviewed by me: Yes (NSR on tele) Phys Exam - Physical Examination Constitutional: NAD HEENT: PERRLA, moist MMs, sclera anicteric, oral pharynx no lesions Neck: no nodes, no JVD, supple, full ROM Respiratory: no wheezing, no rales, no rhonchi, clear to auscultation bilateral Cardiovascular: RRR, no significant murmur, no rub, gallop Gastrointestinal: soft, non-tender, no distention, positive bowel sounds Musculoskeletal: no edema, pulses present, edema present Neurological: non-focal, normal sensation, moves all 4 limbs Psychiatric: normal affect, A&O x 3 Dx/Plan (1) PNA (pneumonia) Code(s): J18.9 - PNEUMONIA, UNSPECIFIED ORGANISM Status: Acute (2) Chronic atrial fibrillation with RVR Code(s): I48.2 - CHRONIC ATRIAL FIBRILLATION Status: Acute (3) Ischemic cardiomyopathy Code(s): I25.5 - ISCHEMIC CARDIOMYOPATHY Status: Chronic (4) AICD (automatic cardioverter/defibrillator) present Code(s): Z95.810 - PRESENCE OF AUTOMATIC (IMPLANTABLE) CARDIAC DEFIBRILLATOR Status: Chronic (5) CAD (coronary artery disease) Code(s): I25.10 - ATHSCL HEART DISEASE OF [place] CORONARY ARTERY W/O ANG PCTRS Status: Chronic (6) Dyslipidemia Code(s): E78.5 - HYPERLIPIDEMIA, UNSPECIFIED Status: Chronic (7) Troponin level elevated Code(s): R74.8 - ABNORMAL LEVELS OF OTHER SERUM ENZYMES Status: Resolved (8) RAY (acute kidney injury) Code(s): N17.9 - ACUTE KIDNEY FAILURE, UNSPECIFIED Status: Resolved Comment : rodrick demand ischemia - Plan continue antibiotics, respiratory therapy, out of bed/ambulate, DVT proph w/SCDs cont IV ABx. blood cx negative so far/ -: cont low dose diuretics.strict I/Os/.clinically not in any fluid overload -: cont Amiodarone per cardiology.reduce BB as BP lower today w parameters -: EP consult per Cardiology for possible AICD upgrade /ablation for [place] -: paroxysmal A-fib. * .check AM labs. * cont ,meds as below. On AC w Eliquis already. * Review of Systems - Review of Systems Constitutional: negative: fever, chills, sweats, weakness, malaise, other Respiratory: negative: Cough, Dry, Shortness of Breath, Hemoptysis, SOB with Excertion, Pleuritic Pain, Sputum, Wheezing Cardiovascular: negative: chest pain, palpitations, orthopnea, paroxysmal nocturnal dyspnea, edema, light headedness, other Gastrointestinal: negative: Nausea, Vomiting, Abdominal Pain, Diarrhea, Constipation, Melena, Hematochezia, Other Genitourinary: negative: Dysuria, Frequency, Incontinence, Hematuria, Retention , Other Musculoskeletal: negative: Neck Pain, Shoulder Pain, Arm Pain, Back Pain, Hand Pain, Leg Pain, Foot Pain, Other Skin: negative: Rash, Lesions, Jacques, Bruising, Other Neurological: negative: Weakness, Numbness, Incoordination, Change in Speech, Confusion, Seizures, Other - Medications/Allergies Allergies/Adverse Reactions: Allergies Allergy/AdvReac Type Severity Reaction Status Date / Time meperidine [From Demerol] Allergy Hives Verified 12/09/17 05:03 prednisone Allergy Hives Verified 12/09/17 05:03 Medications: Current Medications Acetaminophen (Tylenol) 650 mg PO Q4H PRN PRN Reason: Headache/Fever or Pain Last Admin: 01/05/18 03:02 Dose: 650 mg Albuterol Sulfate (Ventolin) 2.5 mg NEB [id number] PRN PRN Reason: Wheezing Apixaban (Eliquis) 5 mg PO BID [facility] Last Admin: 01/06/18 08:40 Dose: 5 mg Aspirin (Ecotrin) 81 mg PO DAILY [facility] Last Admin: 01/06/18 08:40 Dose: 81 mg Furosemide (Lasix) 20 mg SLOW IVP 0600,1400 [facility] Last Admin: 01/06/18 07:08 Dose: Not Given Levofloxacin 500 mg/ Device 100 mls @ 100 mls/hr IVPB Q24HR [facility] Last Admin: 01/06/18 08:40 Dose: 100 mls Amiodarone HCl 450 mg/Miscellaneous Medication 1 each/ Dextrose/Water 259 mls @ 0 mls/hr IVPB INF TWILA; As Directed PRN Reason: Protocol Last Admin: 01/06/18 05:32 Dose: 259 mls Lactulose (Lactulose) 20 gm PO DAILYPRN PRN PRN Reason: Constipation Magnesium Hydroxide (Milk Of Magnesium) 30 ml PO DAILYPRN PRN PRN Reason: Constipation Melatonin (Melatonin) 3 mg PO [facility] Metoprolol Tartrate (Lopressor) 12.5 mg PO BID [facility] Ondansetron HCl (Zofran) 4 mg IVP Q6H PRN PRN Reason: Nausea/Vomiting Pravastatin Sodium (Pravachol) 20 mg PO DAILY [facility] Last Admin: 01/06/18 08:40 Dose: 20 mg Sodium Chloride (Flush - Normal Saline) 10 ml IVF Q12HR [facility] Last Admin: 01/06/18 08:42 Dose: 10 ml Sodium Chloride (Flush - Normal Saline) 10 ml IVF PRN PRN PRN Reason: Saline Flush Tramadol HCl (Ultram) 50 mg PO Q4H PRN PRN Reason: moderate pain Last Admin: 01/06/18 08:41 Dose: 50 mg
[2018-01-06] MEDS ORDERED: Metoprolol Tartrate 25 MG TAB PO SCH ×2 (14:00→21:00)
--- NOTE | 2018-01-06 17:00 | PDOC.CTH ---
Cardiology Progress Note - Subjective He has remained in sinus. - Objective Vital Signs Temp Pulse Pulse Pulse Resp BP BP 01/06/18 14:40 01/06/18 13:36 59 L 18 01/06/18 12:00 98.7 F 63 18 01/06/18 11:44 73 63 104/63 114/70 01/06/18 08:55 97.9 F 68 20 01/06/18 08:45 97.9 F 68 20 BP Pulse Ox Pulse Ox Pulse Ox 01/06/18 14:40 91/62 01/06/18 13:36 89/55 L 94 L 01/06/18 12:00 108/53 L 94 L 01/06/18 11:44 94 L 95 01/06/18 08:55 01/06/18 08:45 106/59 L 96 Weight 217 lb 11.2 oz 01/05/18 01/06/18 01/07/18 06:59 06:59 06:59 Intake Total 540 1600 Output Total 220 1900 Balance 320 -300 - Physical Examination General/Neuro: alert & oriented x3, NAD Neck: no JVD present Lungs: CTA, unlabored respirations Heart: RRR Abdomen: NT/ND Extremities: + edema B (1+) - Telemetry Telemetry Rhythm: NSR - Labs Result Diagrams: 01/05/18 10:38 01/05/18 10:38 Troponin/CKMB CK-MB (CK-2) 1.0 ng/mL (0-6.6) 01/04/18 21:52 Troponin I 0.020 ng/mL (< 0.028) 01/05/18 05:13 - Assessment/Plan 1. Afib RVR now in sinus. 2. Ischemic CM, EF at 15-20% 3. Atypical pneumonia 4. Acute systolic heart failure, mild. 5. Single chamber AICD in place. JAY: - Will stop amiodarone due to low BP and continue BB home dose. - With interstitial changes like this may consider amio lung. Will get pulmonary involved. - Dr. Bai will follow in the morning.
[2018-01-07 07:36] VITALS: TEMP 98.4
[2018-01-07] MEDS ORDERED: Metoprolol Tartrate 25 MG TAB PO SCH (08:25)
--- NOTE | 2018-01-07 08:31 | PDOC.PN ---
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 [place] to do AICD -: upgrade/ablation if needed.c/o dizziness when HR was in 70s - Objective Resuscitation Status: Resuscitation Status FULL:Full Resuscitation MAR Reviewed: Yes Vital Signs & Weight: Vital Signs (12 hours) Temp Pulse Resp BP Pulse Ox 01/07/18 07:35 98.4 F 110 H 18 111/71 93 L 01/07/18 00:39 98.5 F 60 18 100/64 Weight Weight 219 lb I&O: 01/06/18 01/07/18 01/08/18 06:59 06:59 06:59 Intake Total 1600 1247 Output Total 1900 880 Balance -300 367 Result Diagrams: 01/07/18 10:37 01/07/18 10:37 Additional Labs: Microbiology 01/05/18 05:13 Venous blood - Left Hand Blood Culture - Preliminary Specimen has been received and culture in progress. No Growth to date. 01/05/18 05:12 Venous blood - Left Arm Blood Culture - Preliminary Specimen has been received and culture in progress. No Growth to date. Phys Exam - Physical Examination Constitutional: NAD HEENT: PERRLA, moist MMs, sclera anicteric, oral pharynx no lesions Neck: no nodes, no JVD, supple, full ROM Respiratory: no wheezing, no rales, no rhonchi, clear to auscultation bilateral Cardiovascular: no significant murmur, no rub, irregular rate controlled Gastrointestinal: soft, non-tender, no distention, positive bowel sounds Musculoskeletal: no edema, pulses present Neurological: non-focal, normal sensation, moves all 4 limbs Psychiatric: normal affect, A&O x 3 Skin: no rash Dx/Plan (1) PNA (pneumonia) Code(s): J18.9 - PNEUMONIA, UNSPECIFIED ORGANISM Status: Acute Comment: on IV ABx.monitor for any QT prolongation (2) Chronic atrial fibrillation with RVR Code(s): I48.2 - CHRONIC ATRIAL FIBRILLATION Status: Acute Comment: paroxysmal.on chr anticoagulation w eliquis (3) Ischemic cardiomyopathy Code(s): I25.5 - ISCHEMIC CARDIOMYOPATHY Status: Chronic (4) AICD (automatic cardioverter/defibrillator) present Code(s): Z95.810 - PRESENCE OF AUTOMATIC (IMPLANTABLE) CARDIAC DEFIBRILLATOR Status: Chronic (5) CAD (coronary artery disease) Code(s): I25.10 - ATHSCL HEART DISEASE OF [place] CORONARY ARTERY W/O ANG PCTRS Status: Chronic Comment: on BB,statin (6) Dyslipidemia Code(s): E78.5 - HYPERLIPIDEMIA, UNSPECIFIED Status: Chronic (7) Troponin level elevated Code(s): R74.8 - ABNORMAL LEVELS OF OTHER SERUM ENZYMES Status: Resolved (8) RAY (acute kidney injury) Code(s): N17.9 - ACUTE KIDNEY FAILURE, UNSPECIFIED Status: Resolved Comment : rodrick demand ischemia (9) Ischemic cardiomyopathy Code(s): I25.5 - ISCHEMIC CARDIOMYOPATHY Status: Chronic Comment: EF 10-15% - Plan continue antibiotics, PT/OT, respiratory therapy, incentive spirometry, out of bed/ambulate, DVT proph w/SCDs cont to hold amiodarone for low BP.Hold Bb given symptomatic w low HR(70) -: discussed w Dr. langley .will need ablation &/Or AICd upgrade -: will need to be on aldactone,SHONNA-I/ARB for low EF.not on it for unkn reason -: cont gentle diuresis for mild ac sys CHF.changed to home doses today -: pt unsure if he want to continue care here or in [place] * .educated him that he sis rather unstable w hypotension and proaxysmal tachy/ ilya w A-fib * monitor closely. * labs reviewed.check in am again Review of Systems - Review of Systems Constitutional: weakness, malaise. negative: fever, chills, sweats, other ENT: negative: Ear Pain, Ear Discharge, Nose Pain, Nose Discharge, Nose Congestion, Mouth Pain, Mouth Swelling, Throat Pain, Throat Swelling, Other Respiratory: negative: Cough, Dry, Shortness of Breath, Hemoptysis, SOB with Excertion, Pleuritic Pain, Sputum, Wheezing Cardiovascular: negative: chest pain, palpitations, orthopnea, paroxysmal nocturnal dyspnea, edema, light headedness, other Gastrointestinal: negative: Nausea, Vomiting, Abdominal Pain, Diarrhea, Constipation, Melena, Hematochezia, Other Genitourinary: negative: Dysuria, Frequency, Incontinence, Hematuria, Retention , Other Musculoskeletal: negative: Neck Pain, Shoulder Pain, Arm Pain, Back Pain, Hand Pain, Leg Pain, Foot Pain, Other Skin: negative: Rash, Lesions, Jacques, Bruising, Other Neurological: negative: Weakness, Numbness, Incoordination, Change in Speech, Confusion, Seizures, Other - Medications/Allergies Allergies/Adverse Reactions: Allergies Allergy/AdvReac Type Severity Reaction Status Date / Time meperidine [From Demerol] Allergy Hives Verified 12/09/17 05:03 prednisone Allergy Hives Verified 12/09/17 05:03 Medications: Current Medications Acetaminophen (Tylenol) 650 mg PO Q4H PRN PRN Reason: Headache/Fever or Pain Last Admin: 01/05/18 03:02 Dose: 650 mg Albuterol Sulfate (Ventolin) 2.5 mg NEB [id number] PRN PRN Reason: Wheezing Apixaban (Eliquis) 5 mg PO BID [facility] Last Admin: 01/06/18 21:48 Dose: 5 mg Aspirin (Ecotrin) 81 mg PO DAILY [facility] Last Admin: 01/06/18 08:40 Dose: 81 mg Furosemide (Lasix) 40 mg PO DAILY [facility] Levofloxacin 500 mg/ Device 100 mls @ 100 mls/hr IVPB Q24HR [facility] Last Admin: 01/06/18 08:40 Dose: 100 mls Amiodarone HCl 450 mg/Miscellaneous Medication 1 each/ Dextrose/Water 259 mls @ 0 mls/hr IVPB INF [facility]; As Directed PRN Reason: Protocol Last Admin: 01/06/18 05:32 Dose: 259 mls Lactulose (Lactulose) 20 gm PO DAILYPRN PRN PRN Reason: Constipation Magnesium Hydroxide (Milk Of Magnesium) 30 ml PO DAILYPRN PRN PRN Reason: Constipation Melatonin (Melatonin) 3 mg PO [facility] Last Admin: 01/06/18 21:48 Dose: 3 mg Metoprolol Tartrate (Lopressor) 50 mg PO BID [facility] Ondansetron HCl (Zofran) 4 mg IVP Q6H PRN PRN Reason: Nausea/Vomiting Pravastatin Sodium (Pravachol) 20 mg PO DAILY [facility] Last Admin: 01/06/18 08:40 Dose: 20 mg Sodium Chloride (Flush - Normal Saline) 10 ml IVF Q12HR [facility] Last Admin: 01/06/18 22:10 Dose: 10 ml Sodium Chloride (Flush - Normal Saline) 10 ml IVF PRN PRN PRN Reason: Saline Flush Tramadol HCl (Ultram) 50 mg PO Q4H PRN PRN Reason: moderate pain Last Admin: 01/06/18 21:50 Dose: 50 mg
[2018-01-07] MEDS: Apixaban 5 MG TAB PO SCH (08:41)
[2018-01-07] MEDS: Pravastatin Sodium 20 MG TAB PO SCH (08:41)
[2018-01-07] MEDS: Aspirin 81 mg Enteric Coated Tablet PO SCH (08:41)
[2018-01-07] MEDS: traMADol HCl 50 MG TAB PO PRN ×2 (08:52→14:03)
[2018-01-07] MEDS ORDERED: Metoprolol Tartrate 50 MG TAB PO SCH (09:00)
[2018-01-07] MEDS ORDERED: Furosemide 40 MG TAB PO SCH (09:00)
[2018-01-07 10:50] LABS: Hemoglobin 13.3 g/dL (14.0-18.0); Platelet Count 117 thou/uL (130-400)
--- NOTE | 2018-01-07 11:35 | PQF ---
CLINICAL DOCUMENTATION IMPROVEMENT CLARIFICATION FORM: ICD-10 Updated PLEASE DO AN ADDENDUM TO THE PROGRESS NOTE WITH ANY DOCUMENTATION UPDATES OR ADDITIONS AND CARRY THROUGH TO DC SUMMARY. THANK YOU. DATE: 01/07 ATTN: DR. CHRISTIANO HYDE Please exercise your independent, professional judgment in responding to the clarification form. Clinical indicators are provided on the bottom of this form for your review Please check appropriate box(s): Conflicting documentation was noted in the Medical Record, please clarify if patient is being treated/monitored for: [ ] It is more likely to be CHF than symmetrical atypical pneumonia [ ] Clinically, not in any fluid overload [ X ] Acute systolic heart failure, mild [ X ] Other diagnosis Pneumonia [ ] Unable to determine For continuity of documentation, please document condition throughout progress notes and discharge summary. Thank You. CLINICAL INDICATORS - SIGNS / SYMPTOMS/ LABS ATTENDING H&P DOCUMENTATION: ASSESSMENT/PLAN: 2) SHORTNESS OF BREATH: THERE IS QUESTION OF ATYPICAL PNEUMONIA VS EDEMA. PT WAS THOUGHT TO LIKELY HAVE CHF ON HIS LAST ADMISSION HERE BUT LEFT AMA BEFORE WORKUP COULD BE COMPLETED. ... IT IS MORE LIKELY TO BE CHF THAN SYMMETRICAL ATYPICAL PNEUMONIA. ...WE WILL HOLD OFF ON FURTHER ANTIBIOTICS & GET BLOOD CULTURES. WE WILL ALSO START HIM IV DIURESIS W/FUROSEMIDE. ATTENDING PN 01/05: PLAN: CONTINUE IV DIURETICS FOR NOW ATTENDING PN 01/06: PLAN: CONTINUE LOW DOSE DIURETICS, CLINICALLY NOT IN ANY FLUID OVERLOAD CARDIOLOGY PN 01/06: ASSESSMENT/PLAN: 4) ACUTE SYSTOLIC HEART FAILURE, MILD BNP: 344 (ADMIT, 01/05) RISK FACTORS: SEVERE ISCHEMIC CARDIOMYOPATHY (EF 15-20%) CAD S/P STENT TREATMENT: IV DIURETICS (LASIX 01/05 - ) PO LASIX (STARTED 01/07) ECHO CARDIOLOGY CONSULT THANK YOU! [employer] (This form is maintained as a part of the permanent medical record) 2014 [employer]. All Rights Reserved Pricila Luo RN, BSN [email or web address] Office: [phone] [facility] HOSPITALMaxine
[2018-01-07 11:56] VITALS: BP 132/54
--- NOTE | 2018-01-08 13:17 | DIS ---
DATE OF ADMISSION: 01/05/2018 DATE OF DISCHARGE: 01/07/2018 DISCHARGE DISPOSITION: The patient left AMA. DISCHARGE DIAGNOSES: 1. Recurrent paroxysmal atrial fibrillation with slow and fast ventricular rate. 2. Atypical pneumonia. 3. Ischemic cardiomyopathy status post AICD in the past. 4. Coronary artery disease. 5. Dyslipidemia. 6. Non-ST elevation myocardial infarction, likely demand ischemia. 7. Acute kidney insufficiency, resolved. DISCHARGE MEDICATIONS: None as the patient left AMA. HOME MEDICATIONS: Please see H&P. CONSULTATIONS INHOUSE: Cardiology, Dr. Harding and Dr. De Dios. PROCEDURES DONE IN THE HOSPITAL: 1. Transthoracic echocardiogram, which shows EF of 15%-20% which is known for this patient and dilat ed left ventricle and pacer wire in the right ventricle. 2. CT angio of the thorax upon presentation, which is negative for any pulmonary embolism, but shows atypical interstitial changes bilaterally, which are quite extensive both in alveolar spaces and int erstitium consistent with either edema or atypical pneumonia. HISTORY OF PRESENTING ILLNESS: Mr. Daniel is a 42-year-old male with known history of ischemic ca rdiomyopathy and status post single chamber AICD placement and coronary artery disease, atrial fibril lation on chronic anticoagulation with Eliquis, who presented to the emergency room with chest pressu re. He was recently here in our facility last month as well. At that time, he had similar presentin g symptoms, but at that time also, he decided to proceed and leave AMA. At this time, patient was admitted with presumptive diagnosis of atypical pneumonia and mild acute on chronic systolic congestive heart failure and recurrent atrial fibrillation. He was started on IV a ntibiotics and IV diuretics. Cardiology was consulted. Echocardiogram was repeated with the above-m entioned results. HOSPITAL COURSE: The patient was seen by Cardiology and they agreed with the above management. He w as taking amiodarone at home which was restarted, but was later changed to amiodarone drip because he kept converting back and forth between normal sinus and atrial fibrillation rhythms. He was continu ed on his beta alexandre as well as his Eliquis. Unfortunately, he had a drop in his blood pressure necessitating stopping the amiodarone drip and hol ding the metoprolol. He did have good diuresis and otherwise remained hemodynamically stable. It was decided that it would be in his best interest to get his AFIB ablated and his AICD changed to a dual chamber device. Electrophysiology was consulted as per the Cardiology recommendations. This patient gets most of his Cardiology care by Dr. Gonsales in [facility]. He reported that he was recently seen there after his last hospitalization when he left AMA. He said that his rate was nicole ed on his AICD, but unfortunately nothing else was done. I did report to the patient that despite th at he had to be admitted again within a very short period of time with recurrent atrial fibrillation and congestive heart failure symptoms. Despite explaining his clinical condition multiple times, he was insistent that we start him back on his amiodarone and his metoprolol and became very upset that why we have been holding it. 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 I also offered him AICD upgrade and ablation by Electrophysiology. Thus, patient sa id that he wants to talk to his and later I was contacted by the nursing staff as the wante d to talk to me on the phone. I explained all of the clinical condition and recommendation and plan for this patient, but the became verbally abusive and started to yell at me and eventually hung up the phone saying that she wi ll take out the patient AMA because we are not letting him transfer inpatient to his own roentgenologist . I tried to inform her that because this is not a higher level of care; his transfer would not be a pproved. She became very upset because of this and after saying some nasty things on the phone, she hung up the phone on me. Then, I contacted the nurse and told her to let the patient leave AMA if he is insistent despite me telling them the risks involved in the process. The patient is hypotensive and on and off tachycardic and bradycardic with his AFIB and is a high risk of sudden cardiac arrest; AICD shock as well as because of lack of medical care if leaving AMA. Unfortunately, I was un able to make patient and his understand these risks despite multiple attempts. The patient left AMA.
== END 2018-01-07 14:40 | disposition left against medical advice (07) | DRG 193 ==
LOC: ERS 21:33 → 2NO 01-05 00:05
PROVIDERS: ADMIT Internal Medicine; ATTEND Internal Medicine
DX: J18.9 Pneumonia, unspecified organism (principal); I50.21 Acute systolic (congestive) heart failure; N17.9 Acute kidney failure, unspecified; I25.10 Atherosclerotic heart disease of native coronary artery without angina pectoris; I48.91 Unspecified atrial fibrillation; I25.5 Ischemic cardiomyopathy; E78.5 Hyperlipidemia, unspecified; I25.2 Old myocardial infarction; Z95.810 Presence of automatic (implantable) cardiac defibrillator; Z95.5 Presence of coronary angioplasty implant and graft
CPT/HCPCS: 36415; 71045; 71275; 80048; 80053; 81003; 82550; 82553; 82565; 83690; 83735; 83880; 84439; 84443; 84481; 84484; 85014; 85018; 85025; 85049; 85379; 87040; 93005; 93306; 93798; 96365; 96366; 96368; 96375; 96376; A4216; J0282; J1885; J1940; J1956; J2270; J2405; J3370; J7050; J7070; Q0162